=== PATIENT | female | born 1955 | race Native Hawaiian/Other Pacific Islander ===

== ENCOUNTER 2021-04-08 18:47 | Emergency (ER) | payer OTHER ==
[~2021-04-08] VITALS: Ht 165.1 cm; Wt 82.1 kg
[2021-04-08 18:47] VITALS: BP 137/46; TEMP 98.1
[2021-04-08 19:28] LABS: PLATELET COUNT 148 K/uL (152-353)
[2021-04-08 19:50] LABS: POTASSIUM 4.7 mmol/L (3.6-5.2)
[2021-04-08] MEDS ORDERED: [UNRECOGNIZED DRUG - OTHER] INH (23:20)
[2021-04-08] MEDS ORDERED: CLARITIN RDT10 MG PO (23:22)
[2021-04-08] MEDS ORDERED: DOCU100C10 PO (23:23)
[2021-04-08] MEDS ORDERED: CARV6.25 PO (23:24)
[2021-04-08] MEDS ORDERED: FLONASE AL50 MCG/ACT INH (23:25)
[2021-04-08] MEDS ORDERED: FURO40TA93 PO (23:26)
[2021-04-08] MEDS ORDERED: LIPITOR40 MG PO (23:27)
[2021-04-08] MEDS ORDERED: LINZESS145 MCG (23:27)
[2021-04-08] MEDS ORDERED: LYRICA150 MG PO (23:28)
[2021-04-08] MEDS ORDERED: NEOM0.1O OPTH (23:30)
[2021-04-08] MEDS ORDERED: MELATONIN1 MG PO (23:31)
[2021-04-08] MEDS ORDERED: MYRBETRIQ50 MG PO (23:32)
[2021-04-08] MEDS ORDERED: PAXIL20 MG PO (23:33)
[2021-04-08] MEDS ORDERED: HYDR5TAB9 PO (23:33)
[2021-04-08] MEDS ORDERED: POTASSIUM CHLO20 ME2 PO (23:34)
[2021-04-08] MEDS ORDERED: ROPI5T PO (23:34)
[2021-04-08] MEDS ORDERED: MONT10TA PO (23:35)
[2021-04-08] MEDS ORDERED: VICTOZA18 MG/3 ML SC (23:36)
[2021-04-08] MEDS ORDERED: VITAMIN C + PO (23:37)
[2021-04-08] MEDS ORDERED: VITAMIN D3 COMPLETE PO (23:38)
[2021-04-08] MEDS ORDERED: DICL1GEL2 TOP (23:39)
[2021-04-08] MEDS ORDERED: ZINC PO (23:41)
[2021-04-08] MEDS ORDERED: OXYGEN NAS (23:44)
== END 2021-04-08 21:09 | disposition other institution (70) ==
LOC: ED 18:47
PROVIDERS: Emergency Medicine
DX: D64.89 Other specified anemias (principal); F03.91 Unspecified dementia, unspecified severity, with behavioral disturbance; Z11.52 Encounter for screening for COVID-19; Z04.6 Encounter for general psychiatric examination, requested by authority
CPT/HCPCS: 36415; 80053; 85027; 87635; 99283; U0003